=== PATIENT | female | born 1965 | race Caucasian/White ===

== ENCOUNTER 2017-03-20 08:50 | Emergency (ER) | payer SELFPAY ==
[~2017-03-20] VITALS: Ht 170.2 cm; Wt 63.5 kg
--- NOTE | 2017-03-20 09:23 | ED Cough/URI ---
General Chief Complaint: Cough/Cold/Flu Symptoms Stated Complaint: CONGESTION,COUGH Nursing Triage Note: PT REPORTS COUGH AND CONGESTION X 3 DAYS. Source: patient, family (son) Exam Limitations: no limitations History of Present Illness Time seen by provider: 09:14 Initial Comments Patient presents to ER by private conveyance with a chief complaint of for the last day and a half to 2 days she's had progressively worsening cough productive of green sputum, nasal congestion and runny nose, chills, pain in her chest all over made worse by deep breathing or coughing. She has not smoked in over 2 months. She's had no nausea vomiting, objective fevers, diarrhea, abdominal pain. She says she's had some bilateral flank pain and urinary frequency but no dysuria and is concerned she might have a lung infection and a urinary tract infection. She has not seen a doctor for this yet. She has not been on antibiotics last 4 weeks. No travel outside the [facility]. She says years ago she was exposed on 2 or 3 visits to gentleman with tuberculosis and a cough. Her cough just started 2 days ago. Patient has no structural lung disease, asthma, COPD, cancer. She is not on steroids or any immunosuppressants. Allergies and Home Medications Allergies Coded Allergies: No Known Drug Allergies (Unverified , 12/08/11) Home Medications No Active Prescriptions or Reported Meds Constitutional: chills, No fever, malaise EENTM: No ear discharge, No hearing loss, No ear pain Respiratory: cough, phlegm, No short of breath, No wheezing Cardiovascular: see HPI, chest pain (pleuritic) Gastrointestinal: No nausea, No vomiting Genitourinary: No discharge, No dysuria, frequency, No incontinence : No Musculoskeletal: No back pain, No joint pain Skin: No pruritus, No rash Past Zlatxcv-Iucgdi-Qraedb Hx Patient Social History Alcohol Use: Denies Use Recreational Drug Use: No Smoking Status: Never a Smoker 2nd Hand Smoke Exposure: No Recent Foreign Travel: No Contact w/Someone Who Travel: No Recent Infectious Disease Expo: No Recent Hopitalizations: No Seasonal Allergies Seasonal Allergies: No Surgeries History of Surgeries: No Respiratory History of Respiratory Disorde: No Cardiovascular History of Cardiac Disorders: No Neurological History of Neurological Disord: No Reproductive System Hx Reproductive Disorders: No Gastrointestinal History of Gastrointestinal Di: No Musculoskeletal History of Musculoskeletal Dis: No Endocrine History of Endocrine Disorders: No Cancer History of Cancer: No Psychosocial History of Psychiatric Problem: No Integumentary History of Skin or Integumenta: No Blood Transfusions History of Blood Disorders: No Family Medical History Significant Family History: No Pertinent Family Hx Physical Exam Vital Signs Vital Sign - Last 12Hours 03/20/17 09:09 Temp 99.0 Pulse 86 Resp 16 B/P (MAP) 122/74 (90) Pulse Ox 98 Capillary Refill : Less Than 3 Seconds General Appearance: no apparent distress, thin Eyes: Bilateral Eye Normal Inspection, Bilateral Eye PERRL, Bilateral Eye EOMI HEENT: PERRL/EOMI, normal ENT inspection, TMs normal, pharyngeal erythema, tonsillar exudate Neck: non-tender, full range of motion, supple, normal inspection Respiratory: lungs clear, normal breath sounds, no respiratory distress, no accessory muscle use, other (chest wall mildly tender to palpation and reproduces pain on deep inspiration and coughing.) Cardiovascular: normal peripheral pulses, regular rate, rhythm, no edema Gastrointestinal: normal bowel sounds, non tender, soft Extremities: normal inspection, normal capillary refill Neurologic/Psychiatric: alert, normal mood/affect, oriented x 3 Skin: normal color, warm/dry Progress/Results/Core Measures Suspected Sepsis Recent Fever Within 48 Hours: No Infection Criteria Present: None New/Unexplained Altered Menta: No Sepsis Screen: No Definite Risk Sepsis Diagnosis: SIRS Temperature:99.0 Pulse: 86 Respiratory Rate: 16 Blood Pressure 122 /74 Mean: 90 Results/Orders Lab Results Laboratory Tests Test 03/20/17 09:18 Range/Units Urine Color YELLOW Urine Clarity CLEAR Urine pH 6 5-9 Urine Specific Elizabeth 1.020 1.016-1.022 Urine Protein 2+ H NEGATIVE Urine Glucose (UA) 1+ H NEGATIVE Urine Ketones 1+ H NEGATIVE Urine Nitrite NEGATIVE NEGATIVE Urine Bilirubin NEGATIVE NEGATIVE Urine Urobilinogen NORMAL NORMAL MG/DL Urine Leukocyte Esterase NEGATIVE NEGATIVE Urine RBC (Auto) 3+ H NEGATIVE Urine RBC 0-2 /HPF Urine WBC 0-2 /HPF Urine Squamous Epithelial Cells 0-2 /HPF Urine Crystals NONE /LPF Urine Bacteria NEGATIVE /HPF Urine Casts NONE /LPF Urine Mucus NEGATIVE /LPF Urine Culture Indicated NO Group A Streptococcus Screen NEGATIVE NEGATIVE My Orders Orders - BRANDON YOUSIF Chest Pa/Lat (2 View) (03/20/17 09:17) Ua Culture If Indicated (03/20/17 09:17) Rapid Strep A Screen (03/20/17 09:17) Acetaminophen Tablet (Tylenol Tablet) (03/20/17 09:30) Medications Given in ED Current Medications Medications Dose Ordered Sig/Lelia Route Start Time Stop Time Status Last Admin Dose Admin Acetaminophen 1,000 mg ONCE ONCE PO 03/20/17 09:30 03/20/17 09:31 DC 03/20/17 09:30 1,000 MG Vital Signs/I&O Vital Sign - Last 12Hours 03/20/17 09:09 Temp 99.0 Pulse 86 Resp 16 B/P (MAP) 122/74 (90) Pulse Ox 98 Capillary Refill : Less Than 3 Seconds Blood Pressure Mean: 90 Progress Note : Time: :22 Progress Note Rapid strep, urinalysis, chest x-ray were offered and accepted by patient. Diagnostic Imaging Diagonstic Imaging: Xray Plain Films/CT/US/NM/MRI: chest (2v) Comments NAME: ISAAC FAUSTIN [facility] REC#: [id number] PHYSICIAN: BRANDON YOUSIF MD CC: ANDREA HERNANDEZ MD; BRANDON YOUSIF Page 1 of 1 RADIOLOGY REPORT VIA [facility]. [place], [place] CC: ANDREA HERNANDEZ MD; BRANDON YOUSIF Page 1 of 1 RADIOLOGY REPORT NAME: ISAAC FAUSTIN [facility] REC#: [id number] PT STATUS: REG ER : 1965 PHYSICIAN: BRANDON YOUSIF MD ADMIT DATE: 03/20/17/ER Signed Date of Exam: 03/20/17 CHEST PA/LAT (2 VIEW) PATIENT HISTORY: Chest pain with productive cough. TECHNIQUE: Two views of the chest. COMPARISON: 07/23/2008. FINDINGS: The lung volumes are normal. No focal consolidation is seen. No large pleural effusion or pneumothorax is seen. The cardiomediastinal silhouette is normal in size and contour. No acute osseous abnormality is seen. IMPRESSION: No acute pulmonary abnormality seen. Dictated by: Dictated on workstation # [id number] Dict: 03/20/17 0941 Trans: 03/20/1750 Interpreted by: ANDREA HERNANDEZ MD Electronically signed by: ANDREA HERNANDEZ MD 03/20/1750 Reviewed: Reviewed by Me Departure Impression Impression: Primary Impression: Bronchitis Additional Impressions: Pleuritic chest pain Urinary frequency Disposition: 01 HOME, SELF-CARE Condition: Stable Departure-Patient Inst. Decision time for Depature: 10:04 Ref[place]: [facility] [place] Primary Care Physician Patient Instructions: Acute Bronchitis, Adult (DC) Add. Discharge Instructions: Take 2 puffs of the albuterol inhaler every 4 hours as needed for shortness of breath. Use humidifiers, vapor rubs and turned the down in the house. Plenty of fluids to drink and get some rest. Use Tylenol 1000 g every 8 hours or ibuprofen 800 mg every 8 hours for the pleuritic chest pain. If your urinary frequency does not improve or you have new symptoms follow-up with your primary care physician. All discharge instructions reviewed with patient and/or family. Voiced understanding. Scripts Albuterol Sulfate (VENTOLIN HFA) 1 Puff Puff 2 PUFF IH Q4H Y for SHORTNESS OF BREATH, #1 EACH 0 Refills 1 PUFF = 90 MCG Prov: BRANDON YOUSIF 03/20/17 Copy Copies To 1: GUILLE JOHNSON DO BRANDON YOUSIF Mar 20, 2017 09:23
[2017-03-20 09:29] LABS: BILIRUBIN,URINE NEGATIVE (NEGATIVE); KETONES,URINE 1+ (NEGATIVE); LEUKOCYTE ESTERASE ,URINE NEGATIVE (NEGATIVE); NITRITE,URINE NEGATIVE (NEGATIVE); PH,URINE 6 (5-9); PROTEIN,URINE 2+ (NEGATIVE); UROBILINOGEN,URINE NORMAL (NORMAL)
[2017-03-20] MEDS ORDERED: ACETAMINOPHEN 500 MG TAB (TYLENOL) PO ONE (09:30)
[2017-03-20 09:37] LABS: SQUAMOUS EPITHELIAL CELL,UR 0-2 /HPF; WBC,URINE 0-2 /HPF
--- NOTE | 2017-03-20 09:48 | Diagnostic Imaging Report ---
PATIENT HISTORY: Chest pain with productive cough. TECHNIQUE: Two views of the chest. COMPARISON: 07/23/2008. FINDINGS: The lung volumes are normal. No focal consolidation is seen. No large pleural effusion or pneumothorax is seen. The cardiomediastinal silhouette is normal in size and contour. No acute osseous abnormality is seen. IMPRESSION: No acute pulmonary abnormality seen. Dictated by: Dictated on workstation # [id number]
[2017-03-20] MEDS ORDERED: RT-ALBUINH IH (10:10)
[2017-03-20] MEDS ORDERED: RX-IBUPROFEN 600 MG (MOTRIN) TAB PPK#4 PO STA (10:11)
[2017-03-20 10:17] VITALS: BP 122/74
== END 2017-03-20 10:17 | disposition home or self-care (01) ==
LOC: EDUNIT# 08:50 → ER 08:52
DX: J40 Bronchitis, not specified as acute or chronic (principal); R07.81 Pleurodynia; R35.0 Frequency of micturition
CPT/HCPCS: 71020; 81000; 87430; 99283

== ENCOUNTER → 2018-03-02 | Outpatient (CLI) | payer OTHER ==
[~2018-03-02] MED LIST: RT-ALBUINH IH
--- NOTE | 2018-03-02 12:37 | Diagnostic Imaging Report ---
PROCEDURE: CT lumbar spine without contrast. TECHNIQUE: Multiple contiguous axial images were obtained through the lumbar spine without the use of intravenous contrast. Sagittal and coronal reformations were then performed. INDICATION: Low back pain. Curvature and alignment of the lumbar spine is normal. Vertebral body heights are well maintained. Disc spaces are fairly well preserved apart from some mild disc space narrowing at L5-S1. There may be very minimal anterolisthesis of L5 on S1 as well. No fractures are identified. Paraspinous tissues demonstrates moderate gaseous distention to the colon. IMPRESSION: Mild L5-S1 spondylosis and spondylolisthesis. No pars defect is seen. No acute bony abnormality is detected. Dictated by: Dictated on workstation # [id number]
--- NOTE | 2018-03-02 13:23 | Diagnostic Imaging Report ---
PROCEDURE: MRI lumbar spine. TECHNIQUE: Multiplanar, multisequence MRI of the lumbar spine was performed without contrast. INDICATION: Chronic low back pain. FINDINGS: Lumbar spinal curvature and alignment are unremarkable. Vertebral body heights and disc spaces are maintained. Note is made of small right lateral protrusion of the L4-5 disc resulting in mild right neural foraminal stenosis. There is degenerative facet arthropathy at L5-S1 with left facet effusion. Left paramedian disc protrusion results in mild spinal with moderate left lateral recess and mild to moderate left neural foraminal stenosis. Conus medullaris is unremarkable at the T12 level. No marrow signal abnormality is seen to indicate fracture. IMPRESSION: 1. Prominent left paramedian L5-S1 disc protrusion results in mild spinal stenosis with mild to moderate left lateral recess stenosis and mild left neural foraminal stenosis. 2. There is a small right lateral protrusion at L4-5 resulting in mild right neural foraminal stenosis. Dictated by: Dictated on workstation # [id number]
== END ==
LOC: RAD 11:42
PROVIDERS: ATTEND Physician Assistant
DX: M48.07 Spinal stenosis, lumbosacral region (principal); M51.27 Other intervertebral disc displacement, lumbosacral region; M99.73 Connective tissue and disc stenosis of intervertebral foramina of lumbar region; M51.26 Other intervertebral disc displacement, lumbar region; M47.817 Spondylosis without myelopathy or radiculopathy, lumbosacral region; M43.17 Spondylolisthesis, lumbosacral region
CPT/HCPCS: 72131; 72148

== ENCOUNTER 2020-09-30 16:12 | Emergency (ER) | payer OTHER | END 2020-09-30 16:27 | disposition left against medical advice (07) | LOC: EDUNIT# 16:12 → ER 16:14 | DX: R07.0 Pain in throat (principal); R06.02 Shortness of breath; R50.9 Fever, unspecified ==

== ENCOUNTER 2022-06-13 20:25 | Emergency (ER) | payer SELFPAY ==
[~2022-06-13] VITALS: Ht 170 cm; Wt 62.0 kg
--- NOTE | 2022-06-13 21:47 | ED Integumentary General ---
General Chief Complaint: Laceration Stated Complaint: HIT THE WALL, LIP LACERATION Nursing Triage Note: Pt presents with c/o laceration to upper lip. States she ran into a wall in the dark. Denies other injury Source: patient Exam Limitations: no limitations History of Present Illness Date Seen by Provider: Jun 13, 2022 Time Seen by Provider: 21:00 Initial Comments 57-year-old female presents with laceration to lip due to walking into a wall in her home in the dark. States the injury occurred a couple hours prior to arrival. Allergies and Home Medications Allergies Coded Allergies: No Known Drug Allergies (Unverified , 12/08/11) Patient Home Medication List Home Medication List Reviewed: Yes Albuterol Sulfate (Ventolin Hfa) 1 Puff Puff, 2 PUFF IH Q4H PRN for SHORTNESS OF BREATH Prescribed by: BRANDON YOUSIF on 03/20/17 1010 Review of Systems Review of Systems Constitutional: no symptoms reported Past Eipuxxo-Zlfunb-Ifqbxv Hx Seasonal Allergies Seasonal Allergies: No Past Medical History Surgeries: No Respiratory: No Cardiac: No Neurological: No Reproductive Disorders: No Gastrointestinal: No Musculoskeletal: No Endocrine: No Cancer: No Psychosocial: No Integumentary: No Blood Disorders: No Family Medical History No Pertinent Family Hx Physical Exam Vital Signs Vital Signs - First Documented 06/13/22 20:55 Temp 36.7 Pulse 76 Resp 18 B/P (MAP) 173/81 (111) Capillary Refill : Less Than 3 Seconds General Appearance: WD/WN, no apparent distress Neck: supple, normal inspection Cardiovascular: regular rate, rhythm, no edema, no gallop, no JVD, no murmur Respiratory: lungs clear, normal breath sounds, no respiratory distress, no accessory muscle use Extremities: normal range of motion, normal inspection Neurologic/Psychiatric: alert, normal mood/affect Skin: normal color, warm/dry Skin Problem Location: other (upper lip) Skin Problem Character: linear (laceration, one 1 cm, another 0.5 cm) Procedures/Interventions Wound Location: Face (upper lip) Wound Length (cm): 1 Wound's Depth, Shape: linear Wound Explored: clean Anesthesia: 1% Lidocaine Volume Anesthetic (ccs): 2 Suture: Prolene Suture Size: 6-0 Number of Sutures: 3 Progress/Results/Core Measures Results/Orders Vital Signs/I&O 06/13/22 06/13/22 20:55 22:09 Temp 36.7 Pulse 76 76 Resp 18 18 B/P (MAP) 173/81 (111) 173/81 Blood Pressure Mean: 111 Progress Progress Note : Progress Note Patient seen and evaluated, resting comfortably in recliner, no acute distress. Small 1 cm laceration to upper lip, no mucosal involvement, does not cross the vermilion border. Repaired with sutures. Discharge instructions and return precautions provided. Departure Impression Primary Impression: Laceration Disposition: 01 HOME, SELF-CARE Condition: Stable Departure-Patient Inst. Decision time for Depature: 21:33 Referrals: JOSUE LEDEZMA (PCP/Family) Primary Care Physician Patient Instructions: Laceration Repair With Stitches (DC) Add. Discharge Instructions: Return in 5 to 7 days to have the sutures removed. Monitor for signs of infection including swelling, redness, discolored odorous drainage. Return for signs of infection, or any other new, concerning, worsening symptoms. All discharge instructions reviewed with patient and/or family. Voiced understanding. NOVA MURPHY APRN Jun 13, 2022 21:47
[2022-06-13 22:09] VITALS: BP 173/81
== END 2022-06-13 22:09 | disposition home or self-care (01) ==
LOC: EDUNIT# 20:25 → ER 20:27
DX: S01.511A Laceration without foreign body of lip, initial encounter (principal); W22.01XA Walked into wall, initial encounter; Y93.01 Activity, walking, marching and hiking
CPT/HCPCS: 12011

== ENCOUNTER 2022-06-18 21:31 | Emergency (ER) | payer SELFPAY ==
[2022-06-18 21:50] VITALS: BP 155/83
== END 2022-06-18 21:50 | disposition home or self-care (01) ==
LOC: EDUNIT# 21:31 → ER 21:33
DX: Z48.02 Encounter for removal of sutures (principal)